=== PATIENT | male | born 1945 | race Two or more races ===

== ENCOUNTER 2024-12-27 15:53 | Emergency (ER) | payer MEDICARE, MEDICAID, SELFPAY ==
[2024-12-27 16:02] VITALS: BP 142/73; PULSE 79; RESP 20; TEMP 36.7; O2SAT 95
--- NOTE | 2024-12-27 16:21 | PD.EDEPIST ---
ED Epistaxis RME/HPI General Chief complaint: Epistaxis/Nasal Foreign Body Stated complaint: EPITAXIS LEFT NARE Time Seen by Provider: 12/27/24 16:16 Source: patient Arrival date/time: 12/27/24 15:53 Mode of arrival: ambulatory Limitations: no limitations RME / HPI RME / HPI Narrative: 79-year-old male presents to the ED with complaint of a bloody nose that occurred at 2 this afternoon and 1 earlier this morning and then another round of bloody nose earlier in the evening yesterday. Denies trauma. MD complaint: epistaxis Location: left nostril Duration: intermittent and now resolved Associated symptoms: fever Related Data Allergies Allergy/AdvReac Type Severity Reaction Status Date / Time No Known Allergies Allergy Verified 12/27/24 15:57 Review of Systems Constitutional Constitutional: Reports system reviewed and no additional complaints, except as documented Eyes Eyes: Reports system reviewed and no additional complaints, except as documented, Denies dry eyes, Denies exophthalmos and Reports floaters Cardiovascular Cardiovascular: Denies chest pain with activity and Denies claudication ED Exam Narrative Physical exam: Left nasal naris positive for blood fresh it is obstructing the nasal passage. There is no blood in the posterior pharynx. General Limitations: Present no limitations General appearance: Present alert and in no apparent distress Head Head exam: Present atraumatic Eye Eye exam: Present normal appearance and EOMI ENT ENT exam: Present normal exam, normal oropharynx and mucous membranes moist Neck Neck exam: Present normal inspection, full ROM and trachea midline Chest Chest inspection: Present normal inspection and symmetric chest wall rise Extremities Exam Extremities exam: Present normal inspection and full ROM Back Exam Back exam: Present normal inspection and full ROM Neurological Exam Neurological exam: Present alert and oriented X3 Psychiatric Psychiatric exam: Present normal affect and normal mood Skin Skin exam: Present warm, dry, intact and normal color Course Course Course Narrative: ED, PTT, CBC, CMP Quality Measures none Orders Category Date Time Status CBC Stat Lab 12/27/24 16:57 Completed CMP [Comprehensive Metabolic Panel] Stat Lab 12/27/24 16:57 Completed PT [Prothrombin Time with INR] Stat Lab 12/27/24 16:57 Completed PTT [Partial Thromboplastin Time] Stat Lab 12/27/24 16:57 Completed Vital Signs Vital signs: Vital Signs Temperature 98.1 F 12/27/24 16:02 Pulse Rate 79 12/27/24 16:02 Respiratory Rate 20 12/27/24 16:02 Blood Pressure 142/73 H 12/27/24 16:02 Pulse Oximetry (%) 95 12/27/24 16:02 Oxygen Delivery Method Room Air 12/27/24 16:02 Epistaxis MDM Narrative MDM Narrative:: Patient will be departed in no apparent distress. Patient was made aware that continued nosebleeds will result in a Rhino Rocket. Patient does not want us to pack his nose. Instead he is to find a primary care physician for follow-up to today's visit and he should do this as soon as possible. Patient will be discharged in no apparent distress. Patient data External records reviewed:: Other (specify) Clinical information provided by:: none Social determinants that could affect healthcare access:: none Patient has the following chronic illnesses:: Dyspepsia How is presenting disease/condition affected by chronic disease/condition?: no chronic disease Evaluation data The following diagnostics were reviewed and interpreted by me:: lab results Lab and/or radiology exams considered but not ordered:: Not applicable Interpretation Summary: Not applicable Medications / Prescriptions Medications or Prescriptions considered but not ordered:: Not applicable Medication administrations:: N/A Consultations Consultation(s) initiated? (list below): No Diagnosis Epistaxis Differential Diagnosis: nasal bone fracture, anterior epistaxis and posterior epistaxis Most likely diagnosis given after review of the tests above:: Epistaxis Admission Indicated Admission indicated?: not indicated Admission Request Was there a request for admission?: No Disposition Plan Disposition Plan: Discharge Discharge Attestation Discharge Attestation: The patient and all family members were given an opportunity to ask questions and understood the discharge instructions. Discharge instructions specifically effects, indications for sooner follow up or return to the emergency department, and the expected course of current diagnosis. Patient condition: Stable Discharge Plan Plan Patient Disposition: HOME (Self Care) Discharge Disposition comment: Discharged in no apparent distress Patient condition on transfer: Stable Prescriptions/Referrals Referrals: No Primary/Family,Physician [Primary Care Provider] - In 1 week Problem List Clinical Impression: Epistaxis Patient/Caregiver Discharge Instructions Discharge Activity: activity as tolerated Education Materials: Nosebleed, ED Epistaxis (Adult) Print Language: Bhutanese Stand Alone Forms: Luz Award Info., Patient Portal Info Letter PA/ASSISTANT MANAGER Supervising Physician PA/LIANNA Supervising Physician: Brittani
[2024-12-27 17:11] LABS: Basophils # (Auto) 0.1 Thou/mm3 (0.0-0.2); Basophils % (Auto) 1 % (0-2.5); Eosinophils # (Auto) 0.9 Thou/mm3 (0.0-0.5); Eosinophils % (Auto) 11 % (0-10); Hemoglobin 13.6 g/dL (13.5-16.0); Immature Granulocytes % (Auto) 0 % (0-0); Immature Granulocytes Auto 0.03 Thou/mm3 (0.00-0.00); Lymphocytes # (Auto) 1.9 Thou/mm3 (1.0-4.8); Lymphocytes % (Auto) 24 % (10-50); Mean Corpuscular HGB Conc 34.9 g/dl (31.0-37.0); Mean Corpuscular Hemoglobin 31.5 pg (25.0-35.0); Mean Corpuscular Volume 90 fL (80-100); Monocytes # (Auto) 0.8 Thou/mm3 (0.0-0.8); Monocytes % (Auto) 10 % (0-12); Neutrophils # (Auto) 4.5 Thou/mm3 (1.8-7.7); Neutrophils % (Auto) 55 % (37-80); Nucleated Red Blood Cell % 0 /100 WBC (0); Platelet Count 240 Thou/mm3 (140-440); RDW Standard Deviation 45.4 fL (35.1-43.9); Red Blood Count 4.32 Miln/mm3 (4.50-5.90); White Blood Count 8.2 Thou/mm3 (3.8-10.6)
[2024-12-27 17:27] LABS: Partial Thromboplastin Time 25.5 Seconds (22.0-36.0)
[2024-12-27 17:31] LABS: Alanine Aminotransferase 10 U/L (10-49); Albumin, Serum 4.1 gm/dL (3.4-4.8); Albumin/Globulin Ratio 1.6 (1.2-2.2); Alkaline Phosphatase 80 U/L (46-116); Anion Gap 10 (7-16); Aspartate Amino Transferase 23 U/L (0-34); BUN/Creatinine Ratio 12 Ratio (12-20); Bilirubin,Total 0.8 mg/dL (0.3-1.2); Blood Urea Nitrogen 15 mg/dL (9-23); Calcium 8.7 mg/dL (8.3-10.6); Calcium (Corrected) 8.7 mg/dL (8.5-10.1); Carbon Dioxide 29.9 mMol/L (20.0-31.0); Chloride 106 mMol/L (98-107); Creatinine (Component) 1.3 mg/dL (0.6-1.3); Globulin 2.5 gm/dL (2.3-3.5); Glucose 100 mg/dL (74-106); Osmolality,Calculated 291 (275-295); Sodium 146 mMol/L (136-145); Total Protein 6.6 gm/dL (5.7-8.2); eGFR 56 See Note
== END 2024-12-27 19:40 | disposition home or self-care (01) ==
PROVIDERS: Physician Assistant; Emergency Provider Emergency Medicine
DX: R04.0 Epistaxis (principal)
CPT/HCPCS: 36415; 80053; 85025; 85610; 85730; 99283